=== PATIENT | female | born 1980 | race Caucasian/White ===

== ENCOUNTER → 2017-03-31 | Outpatient (CLI) | payer BC ==
[2017-04-01 00:11] LABS: ESTRADIOL LEVEL 171.5 pg/mL (.); PROGESTERONE 0.3 ng/mL (.); TESTOSTERONE TOTAL 25 ng/dL (8-48); THYROXINE 5.7 ug/dL (4.5-12.0)
[2017-04-04 07:11] LABS: DHEA 317 ng/dL (31-701)
== END | disposition home or self-care (01) ==
LOC: LAB 12:16
PROVIDERS: ATTEND General Practice
DX: E34.9 Endocrine disorder, unspecified (principal); R53.83 Other fatigue
CPT/HCPCS: 36415; 82626; 82670; 82679; 84144; 84403; 84436; 84443; 84481